=== PATIENT | female | born 1990 | race Two or more races ===

== ENCOUNTER 2024-01-03 22:03 | Emergency (ER) | payer MEDICAID, OTHER ==
[~2024-01-03] VITALS: Ht 165.1 cm; Wt 81.0 kg
[2024-01-03 22:17] VITALS: BP 114/77; RESP 20; O2SAT 100
[2024-01-03 22:33] VITALS: PULSE 78
[2024-01-03 22:53] LABS: Basophils # (auto) 0 10 ^3/uL (0-0.2); Basophils % (auto) 0.3 % (0.0-2.0); Eosinophils # (auto) 0.2 10 ^3/uL (0-0.8); Eosinophils % (auto) 1.2 % (0.0-7.0); Hematocrit 33.3 % (36.0-46.0); Hemoglobin 11.4 g/dL (12.2-16.2); Lymphocytes # (auto) 1.3 10 ^3/uL (0.4-5.4); Lymphocytes % (auto) 8.8 % (10.0-50.0); Mean Corpuscular Hemoglobin 30.7 pg (28.0-32.0); Mean Corpuscular Hgb Conc. 34.1 g/dL (32.0-36.0); Mean Corpuscular Volume 90.1 fL (80.0-100.0); Monocytes # (auto) 0.4 10 ^3/uL (0-1.3); Monocytes % (auto) 2.5 % (0.0-12.0); Neutrophils # (auto) 12.6 10 ^3/uL (1.6-8.6); Neutrophils % (auto) 87.2 % (37.0-80.0); Red Cell Distribution Width 13.5 % (11.8-14.3); White Blood Cell 14.5 10^3/uL (4.4-10.8)
[2024-01-03 23:05] LABS: Alanine Aminotransferase 35 U/L (7-40); Albumin 4.3 g/dL (3.2-4.8); Alkaline Phosphatase 78 U/L (46-116); Anion Gap 11 (5-15); Aspartate Aminotransferase 102 U/L (13-40); BUN/Creatinine Ratio 19.3 (10.0-20.0); Blood Urea Nitrogen 11 mg/dL (9-23); Calcium 9.6 mg/dL (8.7-10.4); Carbon Dioxide 25 mmol/L (20-30); Chloride 107 mmol/L (98-107); Glucose 128 mg/dL (74-106); Potassium 4.4 mmol/L (3.5-5.1); Sodium 143 mmol/L (136-145)
[2024-01-03 23:06] LABS: Bilirubin, Total 0.3 mg/dL (0.2-1.0); Total Protein 7.3 g/dL (5.7-8.2)
[2024-01-03] MEDS ORDERED: MAALOX PLUS or MAALOX 30 ML PO ONE (23:15)
[2024-01-03] MEDS ORDERED: LIDOCAINE VISCOUS 2% 15ML UD PO ONE (23:15)
[2024-01-03] MEDS ORDERED: ONDANSETRON ODT 4 MG TAB PO ONE (23:15)
[2024-01-04] MEDS ORDERED: cefTRIAXone SOD 1,000 MG VL IM ONE (01:30)
== END 2024-01-04 04:35 | disposition left against medical advice (07) ==
LOC: ER 22:03
DX: D72.829 Elevated white blood cell count, unspecified (principal); D64.9 Anemia, unspecified; R10.84 Generalized abdominal pain; E66.01 Morbid (severe) obesity due to excess calories; Z68.29 Body mass index [BMI] 29.0-29.9, adult
CPT/HCPCS: 36415; 71045; 74176; 80053; 82962; 84484; 85025; 93005

== ENCOUNTER 2024-04-25 17:26 | Emergency (ER) | payer MEDICAID ==
[~2024-04-25] VITALS: Ht 165.1 cm; Wt 78.4 kg
[2024-04-25 19:00] LABS: Basophils # (auto) 0.1 10 ^3/uL (0-0.2); Basophils % (auto) 0.9 % (0.0-2.0); Eosinophils # (auto) 0.2 10 ^3/uL (0-0.8); Eosinophils % (auto) 2.9 % (0.0-7.0); Hematocrit 39.4 % (36.0-46.0); Hemoglobin 13.4 g/dL (12.2-16.2); Lymphocytes # (auto) 2.8 10 ^3/uL (0.4-5.4); Lymphocytes % (auto) 38.6 % (10.0-50.0); Mean Corpuscular Hemoglobin 30.4 pg (28.0-32.0); Mean Corpuscular Hgb Conc. 34.1 g/dL (32.0-36.0); Mean Corpuscular Volume 89.4 fL (80.0-100.0); Monocytes # (auto) 0.4 10 ^3/uL (0-1.3); Monocytes % (auto) 4.9 % (0.0-12.0); Neutrophils # (auto) 3.8 10 ^3/uL (1.6-8.6); Neutrophils % (auto) 52.7 % (37.0-80.0); Nucleated Red Blood Cells % 0.1 %; Platelet Count (auto) 224 10^3/uL (140-450); Red Blood Cells 4.41 10^6/uL (4.0-5.20); Red Cell Distribution Width 13.1 % (11.8-14.3); White Blood Cell 7.3 10^3/uL (4.4-10.8)
[2024-04-25 19:28] LABS: Urine Bacteria None Seen /hpf (None Seen)
[2024-04-25 19:38] LABS: Urine Blood 1+ /uL (Negative); Urine Clarity Clear (Clear); Urine Color Yellow (Yellow); Urine Protein, UAD Negative (Negative); Urine Specific Gravity 1.022 (1.001-1.035); Urine Urobilinogen Normal (Negative); Urine WBC <1 /hpf (0 - 5); Urine pH 5.5 (5.0-9.0)
[2024-04-25] MEDS ORDERED: HYDR-4902 PO (19:42)
[2024-04-25 20:55] VITALS: BP 106/84; PULSE 75; RESP 18; TEMP 98.4; O2SAT 100
== END 2024-04-25 20:57 | disposition home or self-care (01) ==
LOC: ER 17:26
DX: R10.2 Pelvic and perineal pain (principal); R19.7 Diarrhea, unspecified; Z90.710 Acquired absence of both cervix and uterus
CPT/HCPCS: 36415; 81001; 85025

== ENCOUNTER 2024-09-07 20:45 | Emergency (ER) | payer MEDICAID ==
[~2024-09-07 20:45] MED LIST: HYDR-4902 PO
== END 2024-09-07 22:33 | disposition left against medical advice (07) ==
LOC: ER 20:45
DX: R10.9 Unspecified abdominal pain (principal); Z53.21 Procedure and treatment not carried out due to patient leaving prior to being seen by health care provider